=== PATIENT | female | born 1975 | race Caucasian/White ===

== ENCOUNTER 2019-05-10 18:28 | Outpatient (CLI) | payer OTHER ==
--- NOTE | 2019-05-11 18:14 | MRI Report ---
Reason: PAIN RADIATING TO THE THORACIC REGION RIGHT SIDE Procedure Date: 05/10/2019 Accession Number: [id number] / [id number] Procedure: MRI - Knee RT W/O CPT Code: FULL RESULT: EXAM: RIGHT KNEE MRI WITHOUT CONTRAST EXAM DATE: 05/10/2019 07:33 PM. CLINICAL HISTORY: Persistent knee pain after fall in January 2019. COMPARISON: None. TECHNIQUE: Multiplanar, multisequence T1-weighted and fluid-sensitive sequences of the knee without contrast. Other: None. FINDINGS: Ligaments: The proximal fibers of the anterior cruciate ligament are abnormal. The proximal portion of the ligament is slightly wavy in course and at least some of the proximal fibers appear discontiguous at the femoral attachment. Findings are suspicious for sequela of ACL sprain which is probably a partial tear with complete tear possible but less likely. The posterior cruciate ligament is intact. The medial and lateral collateral ligaments are intact. Patellofemoral compartment: Mild generalized partial-thickness thinning of the central and medial retropatellar cartilage. Mild partial-thickness central and medial femoral trochlear chondromalacia. Small patellofemoral osteophytes indicate mild osteoarthritis. Patellofemoral alignment is anatomic. The distal quadriceps and patellar tendons are normal. The medial and lateral patellofemoral retinacula are normal. Medial compartment: The medial meniscus is intact. There is a small focal region of high-grade chondromalacia involving the central weightbearing surface of the medial femoral condyle best seen on the coronal images on series 501 image 17 measuring approximately 2 x 4 mm. The underlying cortex is intact and there is no underlying marrow signal abnormality. Medial compartment cartilage elsewhere is preserved. No significant medial compartment osteophyte formation. Lateral compartment: The lateral meniscus is intact. Lateral compartment cartilage is preserved. No lateral compartment osteoarthritis. Soft tissues: No significant knee effusion. A small popliteal cyst is present. IMPRESSION: 1. Abnormal wavy course and partial discontinuity of the proximal fibers of the anterior cruciate ligament consistent with sequela of partial tear. Complete tear is possible but less likely. 2. 2 x 4 mm focal high-grade and probably full-thickness chondral defect of the weightbearing surface of the medial femoral condyle without underlying degenerative marrow signal changes. The medial compartment is otherwise normal. No medial meniscal tear. 3. Normal lateral compartment. 4. 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 [facility]
== END 2019-05-10 18:29 | disposition home or self-care (01) ==
LOC: DI 18:28
PROVIDERS: ATTEND Family Medicine
DX: R93.7 Abnormal findings on diagnostic imaging of other parts of musculoskeletal system (principal); M94.261 Chondromalacia, right knee; M17.11 Unilateral primary osteoarthritis, right knee